=== PATIENT | male | born 1985 | race Caucasian/White ===

== ENCOUNTER 2019-01-18 21:37 | Emergency (ER) | payer SELFPAY ==
[~2019-01-18] VITALS: Ht 182.9 cm; Wt 93.0 kg
[2019-01-18 21:54] VITALS: BP 126/83
[2019-01-18] MEDS ORDERED: CEPH-264 PO (22:25)
--- NOTE | 2019-01-18 22:25 | PHYS DOC ---
Adult General Chief Complaint Chief Complaint: DENTAL PROBLEM HPI HPI Patient is a 33 year old male who presents with chronic dental caries, dental pain with abscessed premolar bottom right presents with request for antibiotics. Patient states he's been attempting to get into a dentist but does not currently have the funds to do so. No dysphonia and dysphagia or drooling. No other acute symptoms or complaints. [] Review of Systems Review of Systems ROS as per HPI All other systems were reviewed and found to be within normal limits, except as documented in this note. Physical Exam Physical Exam Constitutional: Well developed, well nourished, no acute distress, non-toxic appearance. [] HENT: Normocephalic, atraumatic, bilateral external ears normal, oropharynx moist, widespread caries with erosion of right lower premolar with exposed dentin and pulp in [place] gingival swelling, nose normal. No facial or soft tissue swelling. Swelling or dysphagia or drooling. [] Eyes: PERRLA, EOMI, conjunctiva normal, no discharge. [] Neck: Normal range of motion, no tenderness, no lymphadenopathy. [] Cardiovascular:Heart rate regular rhythm, no murmur. [] Lungs & Thorax: Bilateral breath sounds clear to auscultation. [] Current Patient Data Vital Signs Vital Signs Date Time Temp Pulse Resp B/P (MAP) Pulse Ox O2 Delivery O2 Flow Rate FiO2 01/18/19 21:54 81 18 126/83 (97) 98 Room Air EKG EKG [] Radiology/Procedures Radiology/Procedures [] Course & Med Decision Making Course & Med Decision Making Pertinent Labs and Imaging studies reviewed. (See chart for details) [Antibiotics prescribed. Patient states she has an allergy to penicillin which involves hives only. Recommend dental follow-up [facility]. Return precautions reviewed.] Dragon Disclaimer Dragon Disclaimer This electronic medical record was generated, in whole or in part, using a voice recognition dictation system. Departure Departure Impression: Primary Impression: Pain due to dental caries Disposition: 01 HOME, SELF-CARE Condition: GOOD Referrals: NO PCP (PCP) Patient Instructions: Dental Abscess Additional Instructions: Take anti-biotics as directed and I'll as needed for pain. Follow-up with local dental clinic [facility]. Return to the ED if new or worsening symptoms. Scripts Cephalexin (KEFLEX) 500 Mg Capsule 500 MG PO QID, #40 CAP Prov: KURT WOODRUFF DO 01/18/19 KURT WOODRUFF DO Jan 18, 2019 22:25
== END 2019-01-18 22:50 | disposition home or self-care (01) ==
LOC: ER 21:37
DX: K02.9 Dental caries, unspecified (principal); K04.7 Periapical abscess without sinus; G89.29 Other chronic pain; Z88.0 Allergy status to penicillin
CPT/HCPCS: 99283

== ENCOUNTER 2019-06-24 22:00 | Emergency (ER) | payer SELFPAY ==
[~2019-06-24] VITALS: Ht 182.9 cm; Wt 93.0 kg
[~2019-06-24 22:00] MED LIST: CEPH-264 PO
[2019-06-24 22:50] VITALS: BP 132/95
[2019-06-24] MEDS ORDERED: NAPR-514 PO (23:54)
--- NOTE | 2019-06-24 23:56 | PHYS DOC ---
Past Medical History Past Medical History: No Pertinent History (SONYA JARAMILLO APRN) Past Surgical History: No Surgical History (SONYA JARAMILLO APRN) Additional Information: vapes Alcohol Use: None Drug Use: None (SONYA JARAMILLO APRN) Adult General Chief Complaint Chief Complaint: ANKLE PROBLEM HPI HPI Patient is a 33 year old male who presents to the emergency department with complaints of right lateral ankle pain after rolling his foot inward while going up a step tonight. Patient currently rates his pain an 8 out of 10 on the pain scale, pain increases with weightbearing and movement. There are no alleviating factors (SONYA JARAMILLO APRN) Review of Systems Review of Systems Constitutional: Denies fever or chills [] Musculoskeletal: see history of present illness Integument: Denies rash or skin lesions [] Neurologic: Denies headache, focal weakness or sensory changes [] Complete systems were reviewed and found to be within normal limits, except as documented in this note. (SONYA JARAMILLO APRN) Current Medications Current Medications Current Medications Medications (Trade) Dose Ordered Sig/Jacy Start Time Stop Time Status Last Admin Dose Admin Naproxen (Naprosyn) 500 mg STK-MED ONCE 06/25/19 00:10 06/25/19 00:10 DC (KAI MATTHEWS DO) Allergies Allergies Allergies Coded Allergies Type Severity Reaction Last Updated Verified No Known Drug Allergies 01/18/19 No (KAI MATTHEWS DO) Physical Exam Physical Exam Constitutional: Well developed, well nourished, no acute distress, non-toxic appearance. [] HENT: Normocephalic, atraumatic, bilateral external ears normal, oropharynx moist, no oral exudates, nose normal. [] Eyes: PERRLA, EOMI, conjunctiva normal, no discharge. [] Neck: Normal range of motion, no tenderness, supple, no stridor. [] Cardiovascular:Heart rate regular rhythm, no murmur [] Lungs & Thorax: Bilateral breath sounds clear to auscultation [] Abdomen: Bowel sounds normal, soft, no tenderness, no masses, no pulsatile masses. [] Skin: Warm, dry, no erythema, no rash. [] Back: No tenderness, no CVA tenderness. [] Extremities: No tenderness, no cyanosis, no clubbing, ROM intact, no edema. [] Neurologic: Alert and oriented X 3, normal motor function, normal sensory function, no focal deficits noted. [] Psychologic: Affect normal, judgement normal, mood normal. [] (SONYA JARAMILLO APRN) Current Patient Data Vital Signs Vital Signs Date Time Temp Pulse Resp B/P (MAP) Pulse Ox O2 Delivery O2 Flow Rate FiO2 06/24/19 22:50 98.2 99 16 132/95 (107) 97 Room Air 98.2 (KAI MATTHEWS DO) EKG EKG [] (SONYA JARAMILLO APRN) Radiology/Procedures Radiology/Procedures []No acute fracture or dislocation of right ankle read by Dr. Matthews (SONYA JARAMILLO APRN) Course & Med Decision Making Course & Med Decision Making Pertinent Labs and Imaging studies reviewed. (See chart for details) [] (SONYA JARAMILLO APRN) Dragon Disclaimer Dragon Disclaimer This electronic medical record was generated, in whole or in part, using a voice recognition dictation system. (SONYA JARAMILLO APRN) Departure Departure Impression: Primary Impression: Acute right ankle pain Disposition: HOME, SELF-CARE Condition: STABLE Referrals: NO PCP (PCP) GUSTAVO HAWK MD Patient Instructions: Ankle Sprain Additional Instructions: Fill prescription(s) and use as directed. Recommend application of ice, elevation, and rest of affected extremity. Wear the splint that was placed until symptoms improve. Follow-up with Dr. Hawk if symptoms persist. Return to the ER if your symptoms worsen. Scripts Naproxen (NAPROXEN) 500 Mg Tablet 1 TAB PO BID for 10 Days, #20 TAB 0 Refills Prov: SONYA JARAMILLO APRN 06/24/19 Splinting Splinting : Location: right ankle Pre-Made Type: velcro (ankle Aircast and Yung bandage) Pre-Proc Neuro Vasc Exam: normal Post-Proc Neuro Vasc Exam: normal, unchanged from pre-exam (SONYA JARAMILLO APRN) Attending Signature Attending Signature I have reviewed the PA/SCHOOL PSYCHOLOGY SPECIALIST's note and plan of care. I was available for consultation as needed during the patient's visit in the emergency department. I agree with the clinical impression, plan, and disposition. (KAI MATTHEWS DO) SONYA JARAMILLO APRN Jun 24, 2019 23:56 KAI MATTHEWS DO Jun 25, 2019 05:39
[2019-06-25] MEDS ORDERED: NAPROXEN 500 MG TABLET ONE (00:10)
--- NOTE | 2019-06-25 04:30 | RAD ---
ANKLE RIGHT 3V DATE: 06/24/2019 10:36 PM INDICATION: Ankle pain after injury COMPARISON: None. FINDINGS: Bones: There is no evidence of acute fracture or dislocation. Joints: The ankle mortise is congruent. No widening of the distal tibiofibular syndesmosis. Miscellaneous: None. IMPRESSION: No evidence of acute fracture. Electronically signed by: Huan Chisholm MD (06/25/2019 4:27 AM) [id number]
[2019-06-25] MEDS ORDERED: NAPROXEN 500 MG TABLET PO ONE (23:55)
== END 2019-06-25 00:14 | disposition home or self-care (01) ==
LOC: ER 22:00
DX: M25.571 Pain in right ankle and joints of right foot (principal); F17.200 Nicotine dependence, unspecified, uncomplicated; X50.9XXA Other and unspecified overexertion or strenuous movements or postures, initial encounter; Y93.89 Activity, other specified; Y92.89 Other specified places as the place of occurrence of the external cause; Y99.8 Other external cause status
CPT/HCPCS: 73610; 99284; L4350

== ENCOUNTER 2019-10-29 17:47 | Emergency (ER) | payer SELFPAY ==
[~2019-10-29] VITALS: Ht 182.9 cm; Wt 93.0 kg
[~2019-10-29 17:47] MED LIST changes: +NAPR-514 PO
[2019-10-29 18:17] VITALS: BP 151/82
--- NOTE | 2019-10-29 19:54 | PHYS DOC ---
Past Medical History Past Medical History: No Pertinent History Past Surgical History: No Surgical History Alcohol Use: None Drug Use: None Adult General Chief Complaint Chief Complaint: RIB PAIN HPI HPI Patient is a 34 year old male who presents to the ED today complaining of 7 out of 10 left lateral rib pain that began today after he pulled something from his scalp. Patient describes the pain as sharp and intermittent worse on palpating the area. Review of Systems Review of Systems Constitutional: Denies fever or chills [] Eyes: Denies change in visual acuity, redness, or eye pain [] HENT: Denies nasal congestion or sore throat [] Respiratory: Reports left rib pain. Denies cough or shortness of breath [] Cardiovascular: No additional information not addressed in HPI [] GI: Denies abdominal pain, nausea, vomiting, bloody stools or diarrhea [] : Denies dysuria or hematuria [] Musculoskeletal: Denies back pain or joint pain [] Integument: Denies rash or skin lesions [] Neurologic: Denies headache, focal weakness or sensory changes [] All other systems were reviewed and found to be within normal limits, except as documented in this note. Allergies Allergies Allergies Coded Allergies Type Severity Reaction Last Updated Verified No Known Drug Allergies 01/18/19 No Physical Exam Physical Exam Constitutional: Well developed, well nourished, no acute distress, non-toxic appearance. [] HENT: Normocephalic, atraumatic, bilateral external ears normal, oropharynx moist, no oral exudates, nose normal. [] Eyes: PERRLA, EOMI, conjunctiva normal, no discharge. [] Neck: Normal range of motion, no tenderness, supple, no stridor. [] Cardiovascular:Heart rate regular rhythm, no murmur [] Lungs & Thorax: Left rib with no obvious deformity. Bilateral breath sounds clear to auscultation [] Abdomen: Bowel sounds normal, soft, no tenderness, no masses, no pulsatile masses. [] Skin: Warm, dry, no erythema, no rash. [] Back: No tenderness, no CVA tenderness. [] Extremities: No tenderness, no cyanosis, no clubbing, ROM intact, no edema. [] Neurologic: Alert and oriented X 3, normal motor function, normal sensory function, no focal deficits noted. [] Psychologic: Affect normal, judgement normal, mood normal. [] Current Patient Data Vital Signs Vital Signs Date Time Temp Pulse Resp B/P (MAP) Pulse Ox O2 Delivery O2 Flow Rate FiO2 10/29/19 18:17 98.3 75 16 151/82 (105) 94 Room Air 98.3 EKG EKG [] Radiology/Procedures Radiology/Procedures [] Course & Med Decision Making Course & Med Decision Making Pertinent Labs and Imaging studies reviewed. (See chart for details) This is a 34-year-old male patient presented to the ED today with left rib pain after pulling something from his vehicle. Left rib x-rays including PA chest interpreted by Dr. Koch are negative for any acute findings, patient was discharged to home. Ice elevation encouraged. OTC pain relievers. Deep breaths encouraged. Dragon Disclaimer Dragon Disclaimer This electronic medical record was generated, in whole or in part, using a voice recognition dictation system. Departure Departure Impression: Primary Impression: Muscle strain Disposition: HOME, SELF-CARE Condition: STABLE Referrals: NO PCP (PCP) follow up with your doctor in one week Patient Instructions: Muscle Strain, [id number] Additional Instructions: Please ice and elevate the affected area. Take over the counter pain relievers as needed JONO GRIFFITH APRN Oct 29, 2019 19:53
--- NOTE | 2019-10-30 00:06 | RAD ---
Left rib series with PA chest: Reason for examination: Left lower rib pain after pulling. The heart size is normal. Mediastinum is unremarkable. Lung wilson are clear. No acute bony abnormality seen in the thorax. 3 views of the left ribs show no evidence of fracture and the bone density is normal. IMPRESSION: No acute cardiopulmonary disease. No left rib fractures. Electronically signed by: Roxanne Ellis MD (10/30/2019 12:03 AM) [id number]
== END 2019-10-29 20:04 | disposition home or self-care (01) ==
LOC: ER 17:47
DX: S29.011A Strain of muscle and tendon of front wall of thorax, initial encounter (principal); R07.81 Pleurodynia; X50.9XXA Other and unspecified overexertion or strenuous movements or postures, initial encounter; Y93.89 Activity, other specified; Y92.89 Other specified places as the place of occurrence of the external cause; Y99.8 Other external cause status
CPT/HCPCS: 71101; 99284

== ENCOUNTER 2020-03-03 16:37 | Emergency (ER) | payer SELFPAY ==
[~2020-03-03] VITALS: Ht 182.9 cm; Wt 93.1 kg
[2020-03-03 16:58] VITALS: BP 148/89
--- NOTE | 2020-03-03 17:10 | PHYS DOC ---
Past Medical History Past Medical History: No Pertinent History Past Surgical History: No Surgical History Smoking Status: Current Every Day Smoker Alcohol Use: None Drug Use: None General Adult EDM: Chief Complaint: HEADACHE HPI: HPI: Patient is a 34 year old female who presents with states he stopped smoking a month ago and since then he has had a slight cough. He states he is also having a headache that feels like he is having head pressure like as if he has a cold. Patient has no other complaints and denies any pain but rates his head pressure to 7 out of 10. He denies chest pain, shortness of air, abdominal pain, nausea, vomiting, diarrhea, fever, dizziness, vision changes, numbness or tingling. Review of Systems: Review of Systems: Respiratory: cough or denies shortness of breath. [] Neurologic: Head pressure. Denies headache, focal weakness or sensory changes. [] Heart Score: Risk Factors: Risk Factors: DM, Current or recent (<one month) smoker, HTN, HLP, family history of CAD, obesity. Risk Scores: Score 0 - 3: 2.5% MACE over next 6 weeks - Discharge Home Score 4 - 6: 20.3% MACE over next 6 weeks - Admit for Clinical Observation Score 7 - 10: 72.7% MACE over next 6 weeks - Early Invasive Strategies Allergies: Allergies: Allergies Coded Allergies Type Severity Reaction Last Updated Verified No Known Drug Allergies 01/18/19 No Physical Exam: PE: Constitutional: Well developed, well nourished, no acute distress, non-toxic appearance. [] HENT: Normocephalic, atraumatic, bilateral external ears normal, oropharynx moist, no oral exudates, nose normal. [] Eyes: PERRLA, EOMI, conjunctiva normal, no discharge. [] Neck: Normal range of motion, no tenderness, supple, no stridor. [] Cardiovascular:Heart rate regular rhythm, no murmur [] Lungs & Thorax: Bilateral upper breath sounds clear and diminished in lower lobes to auscultation [] Abdomen: Bowel sounds normal, soft, no tenderness, no masses, no pulsatile masses. [] Skin: Warm, dry, no erythema, no rash. [] Back: No tenderness, no CVA tenderness. [] Extremities: No tenderness, no cyanosis, no clubbing, ROM intact, no edema. [] Neurologic: Alert and oriented X 3, normal motor function, normal sensory function, no focal deficits noted. [] Psychologic: Affect normal, judgement normal, mood normal. [] EKG: EKG: [] Radiology/Procedures: Radiology/Procedures: [] Course & Med Decision Making: Course & Med Decision Making Pertinent Labs and Imaging studies reviewed. (See chart for details) Lungs are clear in upper lobes and diminished in lower lobes. Skin pink warm and dry. Vital signs within normal limits. Patient is told to start taking allergy medication. He is told to take Tylenol for any pain or fever. He is told to self isolate for the next 14 days. I will also give him a prescription to get COVID tested. Patient is ambulatory with a steady gait. Speaks in full clear sentences. Alert and oriented. Xray read by Dr Dumont as no acute findings. [] Dragon Disclaimer: Almas Disclaimer: This electronic medical record was generated, in whole or in part, using a voice recognition dictation system. Departure Departure Impression: Primary Impression: Headache Qualified Codes: R51 - Headache Additional Impression: Body aches Disposition: 01 HOME, SELF-CARE Condition: STABLE Referrals: NO PCP (PCP) Patient Instructions: Headache and Allergies Additional Instructions: Self isolate for the next 14 days as we spoke of. Take Tylenol for any pain or fever. Drink plenty of fluids. Follow-up with primary care doctor if needed. Stop smoking or vaping. Scripts Loratadine (CLARITIN) 10 Mg Capsule 1 CAP PO DAILY for allergy symptoms for 30 Days, #30 CAP 0 Refills Prov: STAR NOLAN APRN 03/03/20 STAR NOLAN APRN March 03, 2020 17:10
--- NOTE | 2020-03-03 18:10 | RAD ---
CHEST PA LATERAL Clinical indications: Cough. COMPARISON: October 29, 2019. Findings: No acute lung infiltrate or pleural effusion or pulmonary edema or lung mass or pneumothorax is seen. The heart size, pulmonary vasculature, mediastinum and both georgette are unremarkable. The osseous structures appear intact. Impression: No acute radiographic abnormality is seen. Electronically signed by: Isiah Mckeon MD (03/03/2020 6:07 PM) [facility] [place]
[2020-03-03] MEDS ORDERED: LORA10CA PO (18:12)
[2020-03-03 18:49] LABS: INFLUENZA A PATIENT NEGATIVE (NEGATIVE); INFLUENZA B PATIENT NEGATIVE (NEGATIVE)
== END 2020-03-03 19:09 | disposition home or self-care (01) ==
LOC: ER 16:37
DX: R51 Headache (principal); R05 Cough; F17.200 Nicotine dependence, unspecified, uncomplicated
CPT/HCPCS: 71046; 87804; 99284